=== PATIENT | female | born 1970 | race Two or more races ===

== ENCOUNTER 2017-02-15 14:09 | Outpatient (CLI) | payer BC | END 2017-02-15 23:59 | disposition home or self-care (01) | LOC: MRI 14:09 | PROVIDERS: ATTEND Anesthesiology | DX: M48.56XA Collapsed vertebra, not elsewhere classified, lumbar region, initial encounter for fracture (principal); M48.07 Spinal stenosis, lumbosacral region; M51.27 Other intervertebral disc displacement, lumbosacral region; N83.201 Unspecified ovarian cyst, right side | CPT/HCPCS: 72148-TC ==

== ENCOUNTER 2017-03-25 07:36 | Outpatient (CLI) | payer BC ==
[2017-03-25 08:46] LABS: BASOPHILS % (AUTO) 0.5 % (0.0-2.0); EOSINOPHILS # (AUTO) 0.1 /CMM (0.0-0.7); EOSINOPHILS % (AUTO) 0.9 % (0.0-6.0); HEMATOCRIT 37 % (33-45); HEMOGLOBIN 12.7 g/dL (11.5-14.8); LYMPHOCYTES # (AUTO) 1.9 /CMM (0.8-4.8); LYMPHOCYTES % (AUTO) 33.4 % (20.0-44.0); MEAN CORPUSCULAR HEMOGLOBIN 30 PG (26.0-33.0); MEAN CORPUSCULAR HGB CONC 34 g/dl (31.0-36.0); MEAN CORPUSCULAR VOLUME 88 fL (82-100); MONOCYTES # (AUTO) 0.7 /CMM (0.1-1.30); MONOCYTES % (AUTO) 11.8 % (2.0-12.0); NEUTROPHILS % (AUTO) 53.4 % (43.0-81.0); PLATELET COUNT (AUTO) 398 /CMM (150-450); RED BLOOD CELL COUNT(AUTO) 4.25 MIL/uL (4.0-5.2); WHITE BLOOD COUNT (AUTO) 5.6 K/uL (4.3-11.0)
[2017-03-25 08:51] LABS: APPEARANCE,URINE SL CLOUDY (CLEAR); BILIRUBIN,URINE NEGATIVE (NEGATIVE); BLOOD, URINE NEGATIVE Ery/uL (NEGATIVE); COLOR,URINE YELLOW (YELLOW); KETONES,URINE NEGATIVE (NEGATIVE); LEUKOCYTE ESTERASE ,URINE 1+ (NEGATIVE); NITRITE, URINE POSITIVE (NEGATIVE); PROTEIN,URINE NEGATIVE (NEGATIVE); UGLUCOSE NEGATIVE (NEGATIVE); UROBILINOGEN,URINE 0.2 EU/dL (0.2)
[2017-03-25 09:03] LABS: ALBUMIN 3.9 g/dL (3.4-5.0); BILIRUBIN,TOTAL 0.4 mg/dL (0.2-1.0); CALCIUM, SERUM 9.6 mg/dL (8.5-10.1); CREATININE 0.6 mg/dL (0.6-1.3); POTASSIUM 4.8 mmol/L (3.5-5.1); TOTAL PROTEIN, SERUM 8.1 g/dL (6.4-8.2)
[2017-03-25 09:14] LABS: BACTERIA,URINE Many /HPF (None Seen); RBC,URINE NONE SEEN /HPF (0-2); SQUAMOUS EPITHELIAL CELL,UR Few /HPF (None Seen)
[2017-03-25 09:18] LABS: THYROID STIMULATING HORMONE 1.417 uIU/mL (0.358-3.74); URIC ACID 4.3 mg/dL (2.6-7.2)
== END 2017-03-25 23:59 | disposition home or self-care (01) ==
LOC: LAB 07:36
PROVIDERS: ATTEND Legal Medicine
DX: E11.9 Type 2 diabetes mellitus without complications (principal); R82.99 Other abnormal findings in urine
CPT/HCPCS: 36415; 80053-TC; 80061-TC; 81000-TC; 82306; 82728-TC; 82746; 83540-TC; 84439-TC; 84443-TC; 84550-TC; 85025-TC; 87086-TC; 87186-TC

== ENCOUNTER 2017-04-26 11:24 | Outpatient (CLI) | payer BC ==
[2017-04-26 12:14] LABS: APPEARANCE,URINE CLEAR (CLEAR); BILIRUBIN,URINE NEGATIVE (NEGATIVE); BLOOD, URINE NEGATIVE Ery/uL (NEGATIVE); COLOR,URINE YELLOW (YELLOW); KETONES,URINE NEGATIVE (NEGATIVE); LEUKOCYTE ESTERASE ,URINE NEGATIVE (NEGATIVE); NITRITE, URINE NEGATIVE (NEGATIVE); PROTEIN,URINE NEGATIVE (NEGATIVE); UGLUCOSE 3+ mg/dL (NEGATIVE); UROBILINOGEN,URINE 0.2 EU/dL (0.2)
[2017-04-26 12:31] LABS: RBC,URINE NONE SEEN /HPF (0-2); WBC,URINE 0-2 /HPF (0-3)
[2017-04-26 12:32] LABS: BACTERIA,URINE Rare /HPF (None Seen); SQUAMOUS EPITHELIAL CELL,UR Few /HPF (None Seen)
== END 2017-04-26 23:59 | disposition home or self-care (01) ==
LOC: LAB 11:24
PROVIDERS: ATTEND Legal Medicine
DX: N39.0 Urinary tract infection, site not specified (principal)
CPT/HCPCS: 81000-TC; 87086-TC

== ENCOUNTER 2017-07-19 08:10 | Outpatient (CLI) | payer BC ==
[2017-07-19 08:58] LABS: APPEARANCE,URINE CLEAR (CLEAR); BILIRUBIN,URINE NEGATIVE (NEGATIVE); BLOOD, URINE NEGATIVE Ery/uL (NEGATIVE); COLOR,URINE YELLOW (YELLOW); KETONES,URINE NEGATIVE (NEGATIVE); LEUKOCYTE ESTERASE ,URINE NEGATIVE (NEGATIVE); NITRITE, URINE NEGATIVE (NEGATIVE); PROTEIN,URINE NEGATIVE (NEGATIVE); UGLUCOSE NEGATIVE (NEGATIVE); UROBILINOGEN,URINE 0.2 EU/dL (0.2)
[2017-07-19 09:06] LABS: ALBUMIN 3.7 g/dL (3.4-5.0); BILIRUBIN,TOTAL 0.6 mg/dL (0.2-1.0); CALCIUM, SERUM 8.8 mg/dL (8.5-10.1); CREATININE 0.7 mg/dL (0.6-1.3); POTASSIUM 3.9 mmol/L (3.5-5.1); TOTAL PROTEIN, SERUM 7.6 g/dL (6.4-8.2)
[2017-07-19 09:11] LABS: BASOPHILS % (AUTO) 0.5 % (0.0-2.0); EOSINOPHILS % (AUTO) 1.4 % (0.0-6.0); HEMATOCRIT 41 % (33-45); HEMOGLOBIN 13.8 g/dL (11.5-14.8); LYMPHOCYTES # (AUTO) 3.2 /CMM (0.8-4.8); LYMPHOCYTES % (AUTO) 44.4 % (20.0-44.0); MEAN CORPUSCULAR HGB CONC 34 g/dl (31.0-36.0); MEAN CORPUSCULAR VOLUME 90 fL (82-100); MONOCYTES # (AUTO) 0.6 /CMM (0.1-1.30); MONOCYTES % (AUTO) 8.8 % (2.0-12.0); NEUTROPHILS # (AUTO) 3.3 /CMM (1.8-8.9); NEUTROPHILS % (AUTO) 44.9 % (43.0-81.0); PLATELET COUNT (AUTO) 358 /CMM (150-450); RDW COEFFICIENT OF VARIATION 13.1 (11.5-15.0); RED BLOOD CELL COUNT(AUTO) 4.56 MIL/uL (4.0-5.2); WHITE BLOOD COUNT (AUTO) 7.3 K/uL (4.3-11.0)
[2017-07-19 09:16] LABS: THYROID STIMULATING HORMONE 1.171 uIU/mL (0.358-3.74)
== END 2017-07-19 23:59 | disposition home or self-care (01) ==
LOC: LAB 08:10
PROVIDERS: ATTEND Internal Medicine
DX: E11.9 Type 2 diabetes mellitus without complications (principal); N39.0 Urinary tract infection, site not specified
CPT/HCPCS: 36415; 80053-TC; 80061-TC; 81000-TC; 84443-TC; 85025-TC; 85652-TC; 86431-TC; 87086-TC

== ENCOUNTER 2017-10-31 05:21 | Inpatient (IN) | payer BC ==
[2017-10-31] VITALS (9 sets, daily range): BP systolic 116–134; BP diastolic 68–82
[~2017-10-31] VITALS: Ht 154.9 cm; Wt 72.6 kg
[2017-10-31 06:30] LABS: BASOPHILS % (AUTO) 0.5 % (0.0-2.0); EOSINOPHILS % (AUTO) 1.6 % (0.0-6.0); HEMATOCRIT 40 % (33-45); HEMOGLOBIN 12.7 g/dL (11.5-14.8); LYMPHOCYTES # (AUTO) 2.4 /CMM (0.8-4.8); LYMPHOCYTES % (AUTO) 49.1 % (20.0-44.0); MEAN CORPUSCULAR HGB CONC 32 g/dl (31.0-36.0); MEAN CORPUSCULAR VOLUME 91 fL (82-100); MONOCYTES # (AUTO) 0.7 /CMM (0.1-1.30); MONOCYTES % (AUTO) 13.7 % (2.0-12.0); NEUTROPHILS # (AUTO) 1.7 /CMM (1.8-8.9); NEUTROPHILS % (AUTO) 35.1 % (43.0-81.0); PLATELET COUNT (AUTO) 346 /CMM (150-450); RDW COEFFICIENT OF VARIATION 12.9 (11.5-15.0); RED BLOOD CELL COUNT(AUTO) 4.34 MIL/uL (4.0-5.2); WHITE BLOOD COUNT (AUTO) 4.9 K/uL (4.3-11.0)
[2017-10-31 06:35] LABS: APPEARANCE,URINE SL CLOUDY (CLEAR); BILIRUBIN,URINE NEGATIVE (NEGATIVE); BLOOD, URINE NEGATIVE Ery/uL (NEGATIVE); COLOR,URINE YELLOW (YELLOW); KETONES,URINE NEGATIVE (NEGATIVE); LEUKOCYTE ESTERASE ,URINE NEGATIVE (NEGATIVE); NITRITE, URINE NEGATIVE (NEGATIVE); PH,URINE 5.5 (5.0-8.0); PROTEIN,URINE NEGATIVE (NEGATIVE); UGLUCOSE NEGATIVE (NEGATIVE); UROBILINOGEN,URINE 0.2 EU/dL (0.2)
[2017-10-31 06:42] LABS: CALCIUM, SERUM 8.9 mg/dL (8.5-10.1); CREATININE 0.6 mg/dL (0.6-1.3); POTASSIUM 3.6 mmol/L (3.5-5.1)
[2017-10-31 06:49] LABS: ALBUMIN 3.5 g/dL (3.4-5.0); BILIRUBIN,TOTAL 0.4 mg/dL (0.2-1.0); TOTAL PROTEIN, SERUM 7.3 g/dL (6.4-8.2)
[2017-10-31 06:54] LABS: INR 0.94 (0.87-1.13)
[2017-10-31] MEDS ORDERED: LIDOCAINE 1% INJ 50 ML MDV IJ ONE (07:07)
[2017-10-31] MEDS ORDERED: BUPIVACAINE MPF 0.5% W/EPI INJ 30 ML VIAL ONE (07:07)
[2017-10-31] MEDS ORDERED: MIDAZOLAM HCL 2 MG/2ML VIAL ONE (07:26)
[2017-10-31] MEDS ORDERED: FENTANYL PF 100MCG/2ML AMPUL ONE (07:26)
[2017-10-31] MEDS ORDERED: DESFLURANE 240 ML BOTTLE IH ONE (08:14)
[2017-10-31] MEDS ORDERED: SEVOFLURANE 250 ML BOTTLE IH ONE (08:15)
[2017-10-31] MEDS ORDERED: SULFANILAMIDE VAG CR 120 GM TUBE VG ONE (09:01)
[2017-10-31] MEDS ORDERED: IV D5 LR 1,000 ML IV PRN (12:00)
[2017-10-31] MEDS ORDERED: KETOROLAC TROMETHAMINE INJ 30 MG/ML VIAL IV SCH (12:00)
--- NOTE | 2017-10-31 12:00 | NUR ---
ADMISSION NOTE RECEIVED PT. PT IS STABLE AND RESTING IN BED. A/P ANTERIOR POSTERIOR REPAIR. POST OP ORDERS RECEIVED, FAXED TO PHARMACY. PT DENIES PAIN AT THIS TIME. SAFET Y MEASURES IN PLACE, CALL LIGHT WITHIN REACH. WILL CONTINUE TO MONITOR.
[2017-10-31] MEDS ORDERED: DEXTROSE 50%-WATER 50 ML DISP.SYRIN IV PRN (12:30)
[2017-10-31] MEDS: ANCEF 1 GM/50 ML D5W IV SCH ×2 (17:03)
[2017-10-31] MEDS: BLOOD SUGAR DIAGNOSTIC 1 EACH STRIP IN SCH (17:03)
[2017-10-31] MEDS: IBUPROFEN 400 MG TABLET PO PRN (17:03)
[2017-10-31] MEDS: METFORMIN 500 MG TABLET PO SCH (17:11)
[2017-10-31] MEDS ORDERED: ACETAMINOPHEN 325 MG TABLET PO PRN (18:00)
--- NOTE | 2017-10-31 18:49 | NUR ---
RN CLOSING NOTE PT IN BED RESTING. ABLE TO TOLERATE PAIN, 05/17. SURGEON CALLED IN ORDER TO OBTAIN PAIN MANAGEMENT. STATES THAT HE DOES NOT WANT OPIOIDS PRESCRIBED FOR PT IN ORDER TO AVOID CONSTIPATION. PT GIVEN TORADOL AT 1300, LATER ADJUSTED FROM Q12 TO Q8 PER DR. DAVIS. ACETAMINOPHEN ORDERED. SAFETY MEASURES IN PLACE, CALL LIGHT WITHIN REACH. WILL ENDORSE TO DIRECTORY CARRIER FOR [facility].
--- NOTE | 2017-10-31 19:50 | NUR ---
MS RN NOTE: PATIENT RESTING IN BED, NO ACUTE DISTRESS NOTED. BREATHING EVEN AND UNLABORED, NO SOB NOTED. IV TO LEFT WRIST IN PLACE. WOMACK CATHETER IN PLACE, EMPTY AT THIS TIME. BED LOCKED AND IN LOWEST POSITION, CALL LIGHT IN REACH. WILL CONTINUE TO MONITOR.
[2017-10-31] MEDS: KETOROLAC TROMETHAMINE INJ 30 MG/ML VIAL IV SCH (20:49)
--- NOTE | 2017-10-31 22:30 | NUR ---
MS RN NOTE: PATIENT VITAL SIGNS STABLE, 133/79, HR 88, 98.4, 97% ON RA. WILL CONTINUE TO MONITOR.
[2017-11-01] VITALS: BP 133/79
[2017-11-01] MEDS: BLOOD SUGAR DIAGNOSTIC 1 EACH STRIP IN SCH ×3 (00:45→11:41)
[2017-11-01] MEDS: ANCEF 1 GM/50 ML D5W IV SCH ×2 (00:45)
[2017-11-01] MEDS: INSULIN REGULAR, HUMAN 100 UNIT/ML 3 ML VIAL SQ PRN ×2 (00:55→11:41)
--- NOTE | 2017-11-01 01:00 | NUR ---
MS RN NOTE: PATIENT BLOOD SUGAR LEVEL SHOWED 34MG/DL, BLOOD SUGAR LEVEL RECHECKED 176MG/DL, PATIENT TO RECEIVED 3 UNITS PER SLIDING SCALE. NO S/S OF HYPER/HYPOGLYCEMIA NOTED. JUICE PROVIDED. WILL CONTINUE TO MONITOR.
[2017-11-01] MEDS: KETOROLAC TROMETHAMINE INJ 30 MG/ML VIAL IV SCH ×2 (05:36→11:51)
--- NOTE | 2017-11-01 06:15 | NUR ---
MS RN NOTE: PATIENT RESTING IN BED, NO ACUTE DISTRESS NOTED. BREATHING EVEN AND UNLABORED, NO SOB NOTED. IV TO LEFT WRIST IN PLACE. WOMACK CATHETER IN PLACE, DRAINED 2700ML CLEAR YELLOW URINE. BED LOCKED AND IN LOWEST POSITION, CALL LIGHT IN REACH. WILL ENDORSE TO DAY NURSE TO CONTINUE WITH PLAN OF CARE. Addendum: 11/01/17 at 0623 by MIKEY RODRÍGUEZ RN PATIENT BLOOD SUGAR LEVEL 127 MG/DL, NO INSULIN NEEDED PER SLIDING SCALE, NO S/S OF HYPO/HYPERGLYCEMIA NOTED.
[2017-11-01 07:09] LABS: BASOPHILS % (AUTO) 0.3 % (0.0-2.0); EOSINOPHILS % (AUTO) 0.8 % (0.0-6.0); HEMATOCRIT 34 % (33-45); HEMOGLOBIN 11.4 g/dL (11.5-14.8); LYMPHOCYTES # (AUTO) 3.3 /CMM (0.8-4.8); LYMPHOCYTES % (AUTO) 33.3 % (20.0-44.0); MEAN CORPUSCULAR HGB CONC 34 g/dl (31.0-36.0); MEAN CORPUSCULAR VOLUME 90 fL (82-100); MONOCYTES # (AUTO) 0.8 /CMM (0.1-1.30); MONOCYTES % (AUTO) 8.2 % (2.0-12.0); NEUTROPHILS # (AUTO) 5.6 /CMM (1.8-8.9); NEUTROPHILS % (AUTO) 57.4 % (43.0-81.0); PLATELET COUNT (AUTO) 287 /CMM (150-450); RDW COEFFICIENT OF VARIATION 12.4 (11.5-15.0); RED BLOOD CELL COUNT(AUTO) 3.75 MIL/uL (4.0-5.2); WHITE BLOOD COUNT (AUTO) 9.8 K/uL (4.3-11.0)
[2017-11-01 07:21] LABS: CALCIUM, SERUM 8.1 mg/dL (8.5-10.1); CREATININE 0.6 mg/dL (0.6-1.3); MAGNESIUM 1.5 mg/dL (1.8-2.4); PHOSPHORUS 3.2 mg/dL (2.5-4.9); POTASSIUM 3.8 mmol/L (3.5-5.1)
[2017-11-01] MEDS ORDERED: PREG100C PO (07:56)
[2017-11-01] MEDS ORDERED: CITA20TA16 PO (07:56)
[2017-11-01] MEDS ORDERED: SERT50TA PO (07:57)
[2017-11-01] MEDS ORDERED: METF-442 PO (07:57)
[2017-11-01] MEDS ORDERED: TRAZ-214 PO (07:57)
[2017-11-01 08:00] VITALS: BP 124/74
--- NOTE | 2017-11-01 08:00 | NUR ---
m/s medical assisting program director: initial assessment received pt in bed awake, a/ox4; ambulatory. remains on iv fluids. f/c intact, draining well to gravity. no c/o pain or any discomfort. no acute to distress noted.
[2017-11-01] MEDS: IBUPROFEN 400 MG TABLET PO PRN (08:43)
[2017-11-01] MEDS: METFORMIN 500 MG TABLET PO SCH (08:43)
[2017-11-01] MEDS ORDERED: PREGABALIN 100 MG CAPSULE PO SCH (09:00)
[2017-11-01] MEDS: Magnesium 1GM/D5W 100ML PREMIX 100 ML IV SCH ×2 (11:50→13:39)
--- NOTE | 2017-11-01 12:45 | NUR ---
m/s utility locate technician: md visit at bedside and cn assisting. md assessed and irrigated the bishop and removed bishop, pola. well.
--- NOTE | 2017-11-01 13:00 | NUR ---
m/s drug enforcement administration agent: notes pt voided with 350ml of clear. dr. lao aware and okay to go home with prescription and to f/u with me on tuesday. pt verbalized understanding. aware that we are replacing her magnesium and home after.
--- NOTE | 2017-11-01 13:15 | NUR ---
m/s solid center winder: pain management seen by dr. solorzano at this time and informed to give her norco before she leaves.
[2017-11-01] MEDS ORDERED: HYDROCODONE/APAP 5/325MG 1 EACH TABLET PO PRN (13:30)
--- NOTE | 2017-11-01 15:00 | NUR ---
m/s swing grinder: d'c instructions discharged instructions with prescriptions given to pt and verbalized understanding. h/l removed with tip intact. pt will f/u with dr. lao this tuesday as stated. pt voiding okay. pt called her mother to pick her up. instructed to call for assistance. will monitor.
--- NOTE | 2017-11-01 15:40 | NUR ---
m/s traffic and transport planner: discharged discharged home accompanied by parents in stable condition with all d'c papers, prescriptions, and belongings.
== END 2017-11-01 15:35 | disposition home or self-care (01) | DRG 983 ==
LOC: DS 05:21 → MED 10:30
PROVIDERS: ADMIT Obstetrics & Gynecology; ATTEND Student in an Organized Health Care Education/Training Program
PROC: 0TQD0ZZ Repair Urethra, Open Approach (ICD-10-PCS; principal; 2017-10-31 07:30)
PROC: 0KQM0ZZ Repair Perineum Muscle, Open Approach (ICD-10-PCS; principal; 2017-10-31 07:30)
DX: N81.10 Cystocele, unspecified (principal); R32 Unspecified urinary incontinence; N81.6 Rectocele; I10 Essential (primary) hypertension; E83.42 Hypomagnesemia; Z83.3 Family history of diabetes mellitus; Z82.49 Family history of ischemic heart disease and other diseases of the circulatory system; Z90.49 Acquired absence of other specified parts of digestive tract; Z79.84 Long term (current) use of oral hypoglycemic drugs; Z79.899 Other long term (current) drug therapy; M47.816 Spondylosis without myelopathy or radiculopathy, lumbar region; E11.40 Type 2 diabetes mellitus with diabetic neuropathy, unspecified; M79.2 Neuralgia and neuritis, unspecified; Z98.890 Other specified postprocedural states
CPT/HCPCS: 36415; 71045-TC; 80048-TC; 80053-TC; 81000-TC; 82962-TC; 83735-TC; 84100-TC; 84703-TC; 85025-TC; 85610-TC; 85730-TC; 87081-TC; 88305-TC; A6402; A6403; J0690; J1100; J1815; J1885; J2250; J2704; J3010; J3475; J3490; J7060

== ENCOUNTER 2017-11-03 12:32 | Outpatient (CLI) | payer BC ==
[~2017-11-03 12:32] MED LIST: CITA20TA16 PO; METF-442 PO; PREG100C PO; SERT50TA PO; TRAZ-214 PO
== END 2017-11-03 23:59 | disposition home or self-care (01) ==
LOC: MSC 12:32
PROVIDERS: ATTEND Internal Medicine
DX: Z09 Encounter for follow-up examination after completed treatment for conditions other than malignant neoplasm (principal); Z87.448 Personal history of other diseases of urinary system; Z98.890 Other specified postprocedural states; E11.9 Type 2 diabetes mellitus without complications; Z79.84 Long term (current) use of oral hypoglycemic drugs; F41.8 Other specified anxiety disorders; G62.9 Polyneuropathy, unspecified

== ENCOUNTER 2018-01-19 06:55 | Day surgery (SDC) | payer BC ==
[2018-01-19] MEDS ORDERED: BUPIVACAINE 0.25% 75 MG/30 ML VIAL ONE (07:58)
[2018-01-19] MEDS ORDERED: IOHEXOL 240MG/ML 50 ML IV ONE (07:58)
[2018-01-19] MEDS ORDERED: methylPREDNISolone ACETATE 80 MG/ML VIAL ONE (07:58)
[2018-01-19] MEDS ORDERED: LIDOCAINE HCL/PF 1% 30 ML SDV ONE (07:58)
== END 2018-01-19 08:45 | disposition home or self-care (01) ==
LOC: DS 06:55
PROVIDERS: ATTEND Anesthesiology
DX: M47.26 Other spondylosis with radiculopathy, lumbar region (principal); M51.16 Intervertebral disc disorders with radiculopathy, lumbar region; M47.816 Spondylosis without myelopathy or radiculopathy, lumbar region; E11.9 Type 2 diabetes mellitus without complications; I10 Essential (primary) hypertension; F32.9 Major depressive disorder, single episode, unspecified; Z98.51 Tubal ligation status; Z90.49 Acquired absence of other specified parts of digestive tract
CPT/HCPCS: 72020-TC; A6209; J1040; J3490; Q9966

== ENCOUNTER 2018-04-03 11:50 | Outpatient (CLI) | payer BC ==
[2018-04-03 13:14] VITALS: BP 135/87
== END 2018-04-03 23:59 | disposition home or self-care (01) ==
LOC: MSC 11:50
PROVIDERS: ATTEND Nurse Practitioner Acute Care
DX: Z09 Encounter for follow-up examination after completed treatment for conditions other than malignant neoplasm (principal); Z86.69 Personal history of other diseases of the nervous system and sense organs; E11.9 Type 2 diabetes mellitus without complications; E78.5 Hyperlipidemia, unspecified; I10 Essential (primary) hypertension; M47.26 Other spondylosis with radiculopathy, lumbar region; M51.36 Other intervertebral disc degeneration, lumbar region; G89.29 Other chronic pain; M54.5 Low back pain; Z79.4 Long term (current) use of insulin

== ENCOUNTER 2018-04-27 13:47 | Outpatient (CLI) | payer BC ==
[2018-04-27 13:49] VITALS: BP 134/83
== END 2018-04-27 23:59 | disposition home or self-care (01) ==
LOC: MSC 13:47
PROVIDERS: ATTEND Nurse Practitioner Acute Care
DX: G43.909 Migraine, unspecified, not intractable, without status migrainosus (principal); R11.2 Nausea with vomiting, unspecified; E11.8 Type 2 diabetes mellitus with unspecified complications; G89.29 Other chronic pain; M54.9 Dorsalgia, unspecified; Z90.49 Acquired absence of other specified parts of digestive tract; Z98.51 Tubal ligation status; E66.3 Overweight
CPT/HCPCS: 70450-TC

== ENCOUNTER 2018-05-12 11:32 | Outpatient (CLI) | payer BC | END 2018-05-12 23:59 | disposition home or self-care (01) | LOC: RAD 11:32 | PROVIDERS: ATTEND Anesthesiology | DX: M25.561 Pain in right knee (principal); M25.551 Pain in right hip | CPT/HCPCS: 73501; 73560-TC ==

== ENCOUNTER 2018-06-23 07:38 | Outpatient (CLI) | payer BC ==
[2018-06-23 08:09] LABS: BASOPHILS # (AUTO) 0.1 /CMM (0.0-0.2); BASOPHILS % (AUTO) 0.8 % (0.0-2.0); EOSINOPHILS % (AUTO) 1.1 % (0.0-6.0); HEMATOCRIT 41 % (33-45); HEMOGLOBIN 13.9 g/dL (11.5-14.8); LYMPHOCYTES % (AUTO) 43.4 % (20.0-44.0); MEAN CORPUSCULAR HGB CONC 34 g/dl (31.0-36.0); MEAN CORPUSCULAR VOLUME 88 fL (82-100); MONOCYTES # (AUTO) 0.5 /CMM (0.1-1.30); NEUTROPHILS # (AUTO) 3.2 /CMM (1.8-8.9); NEUTROPHILS % (AUTO) 46.7 % (43.0-81.0); PLATELET COUNT (AUTO) 319 /CMM (150-450); RED BLOOD CELL COUNT(AUTO) 4.68 MIL/uL (4.0-5.2); WHITE BLOOD COUNT (AUTO) 6.8 K/uL (4.3-11.0)
[2018-06-23 08:16] LABS: APPEARANCE,URINE SL CLOUDY (CLEAR); BILIRUBIN,URINE NEGATIVE (NEGATIVE); BLOOD, URINE NEGATIVE Ery/uL (NEGATIVE); COLOR,URINE YELLOW (YELLOW); KETONES,URINE NEGATIVE (NEGATIVE); LEUKOCYTE ESTERASE ,URINE NEGATIVE (NEGATIVE); NITRITE, URINE NEGATIVE (NEGATIVE); PH,URINE 6.5 (5.0-8.0); PROTEIN,URINE NEGATIVE (NEGATIVE); UGLUCOSE NEGATIVE (NEGATIVE); UROBILINOGEN,URINE 0.2 EU/dL (0.2)
[2018-06-23 08:57] LABS: ALBUMIN 3.8 g/dL (3.4-5.0); BILIRUBIN,TOTAL 0.5 mg/dL (0.2-1.0); CALCIUM, SERUM 9.3 mg/dL (8.5-10.1); CREATININE 0.6 mg/dL (0.6-1.3); TOTAL PROTEIN, SERUM 7.9 g/dL (6.4-8.2)
[2018-06-23 09:00] LABS: THYROID STIMULATING HORMONE 0.969 uIU/mL (0.358-3.74)
== END 2018-06-23 23:59 | disposition home or self-care (01) ==
LOC: LAB 07:38
PROVIDERS: ATTEND Legal Medicine
DX: E11.9 Type 2 diabetes mellitus without complications (principal); I10 Essential (primary) hypertension; D64.9 Anemia, unspecified; E03.9 Hypothyroidism, unspecified; R30.0 Dysuria; Z79.84 Long term (current) use of oral hypoglycemic drugs
CPT/HCPCS: 36415; 80053-TC; 80061-TC; 81000-TC; 84443-TC; 85025-TC; 87086-TC

== ENCOUNTER 2018-07-04 08:10 | Outpatient (CLI) | payer BC | END 2018-07-04 23:59 | disposition home or self-care (01) | LOC: MSC 08:10 | PROVIDERS: ATTEND Nurse Practitioner Acute Care | DX: E78.5 Hyperlipidemia, unspecified (principal); F32.9 Major depressive disorder, single episode, unspecified; G47.00 Insomnia, unspecified; E66.8 Other obesity; E11.65 Type 2 diabetes mellitus with hyperglycemia; Z79.4 Long term (current) use of insulin ==

== ENCOUNTER 2018-08-01 09:59 | Outpatient (CLI) | payer BC | END 2018-08-01 23:59 | disposition home or self-care (01) | LOC: MSC 09:59 | PROVIDERS: ATTEND Anesthesiology | DX: M51.36 Other intervertebral disc degeneration, lumbar region (principal); M51.26 Other intervertebral disc displacement, lumbar region; M47.27 Other spondylosis with radiculopathy, lumbosacral region; M79.2 Neuralgia and neuritis, unspecified; Z79.52 Long term (current) use of systemic steroids; E11.9 Type 2 diabetes mellitus without complications; F32.9 Major depressive disorder, single episode, unspecified; I10 Essential (primary) hypertension ==

== ENCOUNTER 2018-08-01 10:42 | Day surgery (SDC) | payer BC ==
[~2018-08-01] VITALS: Ht 157.5 cm; Wt 56.7 kg
[2018-08-01] MEDS ORDERED: BUPIVACAINE 0.25% 75 MG/30 ML VIAL ONE (11:18)
[2018-08-01] MEDS ORDERED: IOHEXOL 50 ML IV ONE (11:18)
[2018-08-01] MEDS ORDERED: LIDOCAINE HCL/PF 1% 30 ML SDV ONE (11:18)
[2018-08-01] MEDS ORDERED: methylPREDNISolone ACETATE 80 MG/ML VIAL ONE (11:19)
--- NOTE | 2018-08-01 12:00 | NUR ---
MS RN ADMITTED A NEW PATIENT FROM HOME, AWAKE,ALERT,ORIENTED X 4,NOT IN ANY FORM OF DISTRESS,RESPIRATIONS EVEN AND UNLABORED,NO SOB NOTED, LUNGS ARE CLEAR,ABDOMEN SOFT.POSITIVE BOWEL SOUNDS,DENIES PAIN AT THIS TIME,ALL NEEDS ATTENDED.
--- NOTE | 2018-08-01 12:10 | NUR ---
MS RN PATIENT IN OR FOR LUMBAR,EPIDURAL STEROID INJECTION.ALL NEEDS ATTENDED.
== END 2018-08-01 15:00 | disposition home or self-care (01) ==
LOC: DS 10:42 → UNDOADMIN 10:44 → MED 10:44 → UNDODISIN 13:30 → DS 15:00
PROVIDERS: ATTEND Anesthesiology
DX: M47.26 Other spondylosis with radiculopathy, lumbar region (principal); M51.16 Intervertebral disc disorders with radiculopathy, lumbar region
CPT/HCPCS: 62323; 72020; A6209; J1040; J3490 ×2; Q9967; G0378

== ENCOUNTER 2018-10-04 14:30 | Outpatient (CLI) | payer BC | END 2018-10-04 23:59 | disposition home or self-care (01) | LOC: WOU 14:30 | PROVIDERS: ATTEND Podiatrist Foot & Ankle Surgery | DX: M20.12 Hallux valgus (acquired), left foot (principal); L84 Corns and callosities; E11.42 Type 2 diabetes mellitus with diabetic polyneuropathy; R60.0 Localized edema; M25.572 Pain in left ankle and joints of left foot; Z79.4 Long term (current) use of insulin | CPT/HCPCS: 87070-TC; 87075-TC; G0463 ==

== ENCOUNTER 2018-10-13 14:03 | Outpatient (CLI) | payer BC | END 2018-10-13 23:59 | disposition home or self-care (01) | LOC: CARD 14:03 | PROVIDERS: ATTEND Podiatrist Foot & Ankle Surgery | DX: E11.42 Type 2 diabetes mellitus with diabetic polyneuropathy (principal); M20.12 Hallux valgus (acquired), left foot ==

== ENCOUNTER 2018-10-18 14:51 | Outpatient (CLI) | payer BC | END 2018-10-18 23:59 | disposition home or self-care (01) | LOC: RAD 14:51 | PROVIDERS: ATTEND Podiatrist Foot & Ankle Surgery | DX: M19.072 Primary osteoarthritis, left ankle and foot (principal); M20.22 Hallux rigidus, left foot; M25.775 Osteophyte, left foot; M77.32 Calcaneal spur, left foot; B35.1 Tinea unguium; E11.42 Type 2 diabetes mellitus with diabetic polyneuropathy | CPT/HCPCS: 73630-TC ==

== ENCOUNTER 2018-10-25 13:35 | Outpatient (CLI) | payer BC | END 2018-10-25 23:59 | disposition home or self-care (01) | LOC: MRI 13:35 | PROVIDERS: ATTEND Podiatrist Foot & Ankle Surgery | DX: M25.475 Effusion, left foot (principal); E11.42 Type 2 diabetes mellitus with diabetic polyneuropathy; M20.12 Hallux valgus (acquired), left foot; M35.1 Other overlap syndromes | CPT/HCPCS: 73718-TC ==

== ENCOUNTER 2018-11-01 08:40 | Outpatient (CLI) | payer BC ==
[2018-11-01 09:55] LABS: BASOPHILS % (AUTO) 0.5 % (0.0-2.0); EOSINOPHILS % (AUTO) 1.1 % (0.0-6.0); HEMATOCRIT 41 % (33-45); HEMOGLOBIN 13.7 g/dL (11.5-14.8); LYMPHOCYTES # (AUTO) 2.3 /CMM (0.8-4.8); LYMPHOCYTES % (AUTO) 45.7 % (20.0-44.0); MEAN CORPUSCULAR HGB CONC 34 g/dl (31.0-36.0); MEAN CORPUSCULAR VOLUME 89 fL (82-100); MONOCYTES # (AUTO) 0.4 /CMM (0.1-1.30); MONOCYTES % (AUTO) 7.8 % (2.0-12.0); NEUTROPHILS # (AUTO) 2.2 /CMM (1.8-8.9); NEUTROPHILS % (AUTO) 44.9 % (43.0-81.0); PLATELET COUNT (AUTO) 312 /CMM (150-450); RED BLOOD CELL COUNT(AUTO) 4.54 MIL/uL (4.0-5.2)
[2018-11-01 10:23] LABS: ALBUMIN 3.9 g/dL (3.4-5.0); BILIRUBIN,TOTAL 0.4 mg/dL (0.2-1.0); CALCIUM, SERUM 8.9 mg/dL (8.5-10.1); CREATININE 0.6 mg/dL (0.6-1.3); POTASSIUM 4.1 mmol/L (3.5-5.1); TOTAL PROTEIN, SERUM 8.4 g/dL (6.4-8.2)
[2018-11-01 10:25] LABS: THYROID STIMULATING HORMONE 0.872 uIU/mL (0.358-3.74); URIC ACID 3.5 mg/dL (2.6-7.2)
[2018-11-01 10:43] LABS: APPEARANCE,URINE Clear (CLEAR); BILIRUBIN,URINE Negative (NEGATIVE); BLOOD, URINE Negative Ery/uL (NEGATIVE); COLOR,URINE Yellow (YELLOW); KETONES,URINE Negative (NEGATIVE); LEUKOCYTE ESTERASE ,URINE Negative (NEGATIVE); NITRITE, URINE Negative (NEGATIVE); PH,URINE 8.5 (5.0-8.0); PROTEIN,URINE Negative (NEGATIVE); UGLUCOSE 100 MG/DL mg/dL (NEGATIVE); UROBILINOGEN,URINE 0.2 EU/dL (0.2)
[2018-11-02 15:07] LABS: FOLIC ACID > 20.0 ng/mL (>3.0)
== END 2018-11-01 23:59 | disposition home or self-care (01) ==
LOC: LAB 08:40
PROVIDERS: ATTEND Legal Medicine
DX: Z00.00 Encounter for general adult medical examination without abnormal findings (principal); I12.9 Hypertensive chronic kidney disease with stage 1 through stage 4 chronic kidney disease, or unspecified chronic kidney disease; E11.22 Type 2 diabetes mellitus with diabetic chronic kidney disease; N18.9 Chronic kidney disease, unspecified; D64.9 Anemia, unspecified; E78.00 Pure hypercholesterolemia, unspecified; E03.9 Hypothyroidism, unspecified
CPT/HCPCS: 36415; 80053-TC; 80061-TC; 81000-TC; 82306; 82728-TC; 83540-TC; 84439-TC; 84443-TC; 84550-TC; 85025-TC

== ENCOUNTER 2018-11-01 14:00 | Outpatient (CLI) | payer BC | END 2018-11-01 23:59 | disposition home or self-care (01) | LOC: WOU 14:00 | PROVIDERS: ATTEND Podiatrist Foot & Ankle Surgery | DX: M79.672 Pain in left foot (principal); B35.1 Tinea unguium; E11.42 Type 2 diabetes mellitus with diabetic polyneuropathy; M20.12 Hallux valgus (acquired), left foot | CPT/HCPCS: G0463 ==